=== PATIENT | male | born 1930 | race Hispanic/Latino ===

== ENCOUNTER 2017-10-25 12:37 | Observation (INO) | payer MEDICARE ==
[2017-10-25 13:03] LABS: BASOPHILS % (AUTO) 1.1 % (0.0-5.0); HEMATOCRIT 33.5 % (42-54); LYMPHOCYTES % (AUTO) 9.4 % (21.0-51.0); MEAN CORPUSCULAR HEMOGLOBIN 31.7 pg (27.0-33.0); MEAN CORPUSCULAR HGB CONC 35.2 g/dL (32.0-36.0); MEAN CORPUSCULAR VOLUME 89.9 fL (79-99); MONOCYTES % (AUTO) 10.1 % (3.0-13.0); NEUTROPHILS % (AUTO) 77.4 % (40.0-77.0); PLATELET COUNT (AUTO) 134 K/uL (130-400); RED BLOOD CELL COUNT(AUTO) 3.73 MIL/uL (4.50-6.20); RED CELL DISTRIBUTION WIDTH 13.5 % (11.0-15.5); WHITE BLOOD COUNT (AUTO) 5.9 K/uL (4.8-10.8)
[2017-10-25 13:13] LABS: INR 1.2 (0.85-1.15); PARTIAL THROMBOPLASTIN TIME 31.3 SEC (26.3-35.5); PROTHROMBIN TIME 12.6 SEC (9.6-11.6)
[2017-10-25] MEDS ORDERED: ACETAMINOPHEN 325 MG TAB ONE (13:13)
[2017-10-25] MEDS ORDERED: CEFTRIAXONE SODIUM 2 GM VIAL ONE (13:43)
[2017-10-25 13:45] LABS: CARBON DIOXIDE 24 mmol/L (21-32); CHLORIDE 101 mmol/L (101-111); CREATININE 1.5 mg/dL (0.5-1.5); GLOMERULAR FILTR. RATE CALC 47 mL/min (>60); GLUCOSE,RANDOM 189 mg/dL (70-105); POTASSIUM 3.7 mmol/L (3.5-5.1); SODIUM SERUM 135 mmol/L (136-145); UREA NITROGEN, BLOOD 23 mg/dL (7-18)
[2017-10-25 13:59] LABS: ALANINE AMINOTRANSFERASE 38 U/L (12-78); ALBUMIN 3.9 g/dL (3.5-5.0); ASPARTATE AMINOTRANSFERASE 43 U/L (10-37); BILIRUBIN,TOTAL 0.5 mg/dL (0.2-1.0); CREATINE KINASE MB < 0.5 ng/mL (0.5-3.6); CREATINE KINASE, TOTAL 53 U/L (21-232); MYOGLOBIN 76 ng/mL (10-92); TOTAL PROTEIN, SERUM 7.6 g/dL (6.0-8.3); TROPONIN I < 0.04 ng/mL (0.00-0.06)
[2017-10-25 14:09] LABS: APPEARANCE,URINE Clear (CLEAR); BILIRUBIN,URINE Negative (NEGATIVE); COLOR,URINE Yellow (YELLOW); GLUCOSE, URINE (UA) 250 mg/dL (NEGATIVE); KETONES,URINE Trace mg/dL (NEGATIVE); LEUKOCYTE ESTERASE ,URINE Trace (NEGATIVE); NITRATE,URINE Negative (NEGATIVE); OCCULT BLOOD,URINE Negative (NEGATIVE); PH,URINE 5.5 (5.0-8.0); PROTEIN,URINE POS 1+ (NEGATIVE)
[2017-10-25 14:20] LABS: BACTERIA,URINE Few /HPF (None Seen); RBC,URINE None Seen /HPF (0-1)
[2017-10-25] MEDS ORDERED: SODIUM CHLORIDE 0.9% 1000ML 1,000 ML IV SCH (16:01)
[2017-10-25] MEDS ORDERED: ACETAMINOPHEN-CODEINE 300/30MG TAB PO PRN (16:15)
[2017-10-25] MEDS ORDERED: MAG HYDROX/AL HYDROX/SIMETH ES 30 ML SUSP UDCUP PO PRN (16:15)
[2017-10-25] MEDS ORDERED: ACETAMINOPHEN 325 MG TAB PO PRN ×2 (16:15)
[2017-10-25] MEDS ORDERED: LACTULOSE 20 GM/30 ML UDCUP PO PRN (16:15)
[2017-10-25] MEDS ORDERED: GUAIFENESIN-DM 200/20 MG 10 ML PO PRN (16:15)
[2017-10-25] MEDS ORDERED: ONDANSETRON HCL 4 MG/2 ML VIAL IV PRN (16:15)
[2017-10-25] MEDS: IPRATROPIUM/ALBUTEROL SULFATE 3 ML SOLUTION IH SCH ×2 (17:19→23:45)
[2017-10-25] MEDS ORDERED: ERGO500014 PO (18:56)
[2017-10-25] MEDS ORDERED: NAPR-1023 PO (18:56)
[2017-10-25] MEDS ORDERED: GEMF600T3 PO (18:56)
[2017-10-25] MEDS ORDERED: LEVO50TA11 PO (18:56)
[2017-10-25] MEDS ORDERED: LINA1TAB5 PO (18:56)
[2017-10-25] MEDS ORDERED: TRAZ-144 PO (18:56)
[2017-10-25] MEDS ORDERED: CITA-107 PO (18:56)
[2017-10-25] MEDS ORDERED: ENAL10TA PO (18:56)
[2017-10-25] MEDS: OSELTAMIVIR PHOSPHATE 75 MG CAP PO SCH (20:21)
[2017-10-25 20:37] VITALS: BP 108/59
[2017-10-25] MEDS ORDERED: TRAZODONE HCL 50 MG TAB PO PRN (23:15)
[2017-10-25] MEDS: AZITHROMYCIN 500MG+NS 250ML 250 ML IV SCH (23:48)
[2017-10-26] VITALS (7 sets, daily range): BP systolic 93–119; BP diastolic 52–65
[2017-10-26] MEDS: IPRATROPIUM/ALBUTEROL SULFATE 3 ML SOLUTION IH SCH ×6 (06:00→18:00)
[2017-10-26] MEDS: LEVOTHYROXINE 50 MCG TABLET PO SCH (06:22)
[2017-10-26] MEDS ORDERED: ENALAPRIL MALEATE 10 MG TABLET PO SCH (09:00)
[2017-10-26] MEDS ORDERED: POTASSIUM CHLORIDE 20 MEQ ERTAB PO PRN (09:15)
[2017-10-26] MEDS ORDERED: POTASSIUM CHLORIDE 10% ELIXIR 20 MEQ/15 ML UDCUP PO PRN (09:15)
[2017-10-26] MEDS ORDERED: POTASSIUM CHLORIDE 20MEQ/100ML 100 ML IV PRN (09:15)
[2017-10-26] MEDS ORDERED: LIDOCAINE HCL-MPF 1% 2ML VIAL IVP PRN (09:15)
[2017-10-26] MEDS: GEMFIBROZIL 600 MG TABLET PO SCH ×2 (12:22→20:04)
[2017-10-26] MEDS: METFORMIN HCL 500 MG TABLET PO SCH ×2 (12:22→18:48)
[2017-10-26] MEDS: PANTOPRAZOLE SODIUM 40 MG TABLET.DR PO SCH (12:29)
[2017-10-26] MEDS: LINAGLIPTIN 5 MG TABLET PO SCH ×2 (12:29→18:48)
[2017-10-26] MEDS: OSELTAMIVIR PHOSPHATE 75 MG CAP PO SCH ×2 (12:29→20:04)
[2017-10-26] MEDS ORDERED: CITALOPRAM 20 MG TABLET PO SCH (21:00)
[2017-10-26] MEDS: AZITHROMYCIN 500MG+NS 250ML 250 ML IV SCH (22:50)
[2017-10-27] MEDS: IPRATROPIUM/ALBUTEROL SULFATE 3 ML SOLUTION IH SCH ×5 (00:40→10:54)
[2017-10-27 03:46] VITALS: BP 106/62
[2017-10-27] MEDS: LEVOTHYROXINE 50 MCG TABLET PO SCH (06:16)
[2017-10-27 08:00] VITALS: BP 122/74
[2017-10-27] MEDS: PANTOPRAZOLE SODIUM 40 MG TABLET.DR PO SCH (09:15)
[2017-10-27] MEDS: METFORMIN HCL 500 MG TABLET PO SCH (09:16)
[2017-10-27] MEDS: LINAGLIPTIN 5 MG TABLET PO SCH (09:19)
[2017-10-27] MEDS: OSELTAMIVIR PHOSPHATE 75 MG CAP PO SCH (09:21)
[2017-10-27] MEDS: GEMFIBROZIL 600 MG TABLET PO SCH (09:21)
[2017-10-27 11:00] VITALS: BP 127/71
[2017-10-27] MEDS ORDERED: OSEL75 PO (11:12)
[2017-11-01] MEDS ORDERED: ERGOCALCIFEROL (VITAMIN D2) 50,000 UNIT CAPSULE PO SCH (09:00)
== END 2017-10-27 12:55 | disposition home or self-care (01) ==
LOC: EDH 12:37 → EDHIP 16:01 → 3BH 17:54
PROVIDERS: ADMIT Family Medicine; ATTEND Family Medicine
DX: J10.1 Influenza due to other identified influenza virus with other respiratory manifestations (principal); I10 Essential (primary) hypertension; E11.9 Type 2 diabetes mellitus without complications; E03.9 Hypothyroidism, unspecified; Z88.0 Allergy status to penicillin; Z87.891 Personal history of nicotine dependence; R11.2 Nausea with vomiting, unspecified
CPT/HCPCS: 36415; 71010; 80053; 81001; 82550; 82553; 82948 ×2; 83605 ×2; 83874; 84484; 85025; 85610; 85730; 87040 ×2; 87046; 87088; 87324; 87804 ×2; 93005; 94640 ×8; 94664; 96361 ×2; 96365; 96366; 99285; G0378 ×45; J0456 ×2; J0696; J7030

== ENCOUNTER 2019-06-27 16:26 | Emergency (ER) | payer MEDICARE ==
[~2019-06-27 16:26] MED LIST: CITA-107 PO; ENAL10TA PO; ERGO500014 PO; GEMF600T5 PO; LEVO50TA11 PO; LINA1TAB5 PO; NAPR-1023 PO; OSEL75 PO; TRAZ-185 PO
[2019-06-27 17:36] LABS: BASOPHILS % (AUTO) 0.4 % (0.0-5.0); EOSINOPHILS % (AUTO) 18.2 % (0.0-8.0); HEMATOCRIT 27.9 % (42-54); LYMPHOCYTES % (AUTO) 21.6 % (21.0-51.0); MEAN CORPUSCULAR HEMOGLOBIN 32.8 pg (27.0-33.0); MEAN CORPUSCULAR HGB CONC 35.6 g/dL (32.0-36.0); MEAN CORPUSCULAR VOLUME 92.2 fL (79-99); MONOCYTES % (AUTO) 10.2 % (3.0-13.0); NEUTROPHILS % (AUTO) 49.6 % (40.0-77.0); PLATELET COUNT (AUTO) 142 K/uL (130-400); RED BLOOD CELL COUNT(AUTO) 3.02 MIL/uL (4.50-6.20); RED CELL DISTRIBUTION WIDTH 13.8 % (11.0-15.5); WHITE BLOOD COUNT (AUTO) 5.4 K/uL (4.8-10.8)
[2019-06-27 17:46] LABS: CREATININE 1.5 mg/dL (0.5-1.5); POTASSIUM 4.5 mmol/L (3.5-5.1)
[2019-06-27 17:47] LABS: INR 1.13 (0.85-1.15); PARTIAL THROMBOPLASTIN TIME 26.8 SEC (26.3-35.5); PROTHROMBIN TIME 11.8 SEC (9.6-11.6)
[2019-06-27 17:51] LABS: MAGNESIUM 1.8 mg/dL (1.80-2.40)
[2019-06-27 17:54] LABS: B-TYPE NATRIURETIC PEPTIDE 11 pg/mL (0-100)
[2019-06-27] MEDS ORDERED: SODIUM CHLORIDE 0.9% 1000ML 1,000 ML IV ONE (18:21)
[2019-06-27 19:28] LABS: APPEARANCE,URINE Clear (CLEAR); BILIRUBIN,URINE Negative (NEGATIVE); COLOR,URINE Yellow (YELLOW); GLUCOSE, URINE (UA) Negative (NEGATIVE); KETONES,URINE Negative (NEGATIVE); LEUKOCYTE ESTERASE ,URINE Trace (NEGATIVE); NITRATE,URINE Negative (NEGATIVE); OCCULT BLOOD,URINE Negative (NEGATIVE); PROTEIN,URINE Negative (NEGATIVE); UROBILINOGEN,URINE 0.2 mg/dL (0.2-1.0)
[2019-06-27 19:51] LABS: BACTERIA,URINE Rare /HPF (None Seen); RBC,URINE 0-1 /HPF (0-1)
[2019-06-27 19:52] LABS: SQUAMOUS EPITHELIAL CELL,UR Rare /HPF (0-2)
== END 2019-06-27 21:34 | disposition home or self-care (01) ==
LOC: EDH 16:26
DX: E86.9 Volume depletion, unspecified (principal); I95.9 Hypotension, unspecified; R53.1 Weakness; D72.1 Eosinophilia; R79.1 Abnormal coagulation profile; I10 Essential (primary) hypertension; E11.9 Type 2 diabetes mellitus without complications; E78.00 Pure hypercholesterolemia, unspecified; Z88.0 Allergy status to penicillin
CPT/HCPCS: 36415; 71045; 74176; 80048; 81001; 82550; 83605; 83735; 83880; 84484; 85025; 85610; 85730; 87040 ×2; 93005; 96360; 96361; 99285; J7030